=== PATIENT | male | born 1960 | race Two or more races ===

== ENCOUNTER → 2017-03-17 | Emergency (ER) | payer OTHER ==
[~2017-03-17] VITALS: Ht 185.4 cm; Wt 95.3 kg
[~2017-03-17] MED LIST: FOLIC ACID1 MG PO; GLIPIZIDE5 MG; HUMULIN 70100 UNIT/1; LANTUS SOLOSTAR3 ML; NEURONTIN300 MG PO; ZoCOR 20MG TABLET PO
== END | disposition left against medical advice (07) ==
LOC: ER 11:10
DX: Z53.20 Procedure and treatment not carried out because of patient's decision for unspecified reasons (principal)

== ENCOUNTER 2018-07-04 06:49 | Inpatient (IN) | payer OTHER ==
[~2018-07-04] VITALS: Ht 30.5 cm; Wt 6.0 kg
[2018-07-05] MEDS ORDERED: SIMVASTATIN20 MG PO (08:41)
[2018-07-30] MEDS ORDERED: FOLIC ACID1 MG PO (16:52)
[2018-07-30] MEDS ORDERED: Intestinex CAP PO (16:52)
[2018-07-30] MEDS ORDERED: CHLORHEXIDINE118 M1 TOP (16:52)
[2018-07-30] MEDS ORDERED: MUPIROCIN22 GM NASAL (16:52)
[2018-07-30] MEDS ORDERED: HUMULIN 70100 UNIT/2 SUBCUTANEO ×2 (16:52)
[2018-07-30] MEDS ORDERED: Lipitor 10MG TABLET PO (16:52)
[2018-07-30] MEDS ORDERED: NEURONTIN300 MG PO (16:52)
[2018-07-30] MEDS ORDERED: FAMOTIDINE20 MG PO (16:52)
[2018-07-30] MEDS ORDERED: ENALAPRIL MALEAT5 MG PO (16:52)
== END 2018-07-30 17:37 | DRG 623 ==
LOC: ER 06:49 → SEC-K 19:09 → SURH 19:09
PROVIDERS: Specialist; ADMIT Internal Medicine Geriatric Medicine
PROC: 8E0ZXY6 Isolation (ICD-10-PCS; 2018-07-04)
PROC: BQ3LZZZ Magnetic Resonance Imaging (MRI) of Right Foot (ICD-10-PCS; 2018-07-04)
PROC: 02HV33Z Insertion of Infusion Device into Superior Vena Cava, Percutaneous Approach (ICD-10-PCS; 2018-07-04)
PROC: 0JBQ0ZZ Excision of Right Foot Subcutaneous Tissue and Fascia, Open Approach (ICD-10-PCS; principal; 2018-07-09 14:00)
DX: E11.621 Type 2 diabetes mellitus with foot ulcer (principal); M86.671 Other chronic osteomyelitis, right ankle and foot; M86.672 Other chronic osteomyelitis, left ankle and foot; E08.42 Diabetes mellitus due to underlying condition with diabetic polyneuropathy; L97.511 Non-pressure chronic ulcer of other part of right foot limited to breakdown of skin; E78.49 Other hyperlipidemia; I87.2 Venous insufficiency (chronic) (peripheral); L03.032 Cellulitis of left toe; Z88.8 Allergy status to other drugs, medicaments and biological substances; Z89.421 Acquired absence of other right toe(s); B95.62 Methicillin resistant Staphylococcus aureus infection as the cause of diseases classified elsewhere; D64.89 Other specified anemias; R80.8 Other proteinuria; F43.21 Adjustment disorder with depressed mood; Z91.14 Patient's other noncompliance with medication regimen; Z88.0 Allergy status to penicillin
CPT/HCPCS: 73722

== ENCOUNTER 2020-03-30 09:26 | Outpatient (CLI) | payer OTHER ==
[~2020-03-30 09:26] MED LIST changes: +CHLORHEXIDINE118 M1 TOP; +ENALAPRIL MALEAT5 MG PO; +FAMOTIDINE20 MG PO; +HUMULIN 70100 UNIT/2 SUBCUTANEO; +Intestinex CAP PO; +Lipitor 10MG TABLET PO; +MUPIROCIN22 GM NASAL; +SIMVASTATIN20 MG PO
== END 2020-03-30 09:30 | disposition home or self-care (01) ==
LOC: LAB 09:26
PROVIDERS: ATTEND Specialist
DX: Z20.828 Contact with and (suspected) exposure to other viral communicable diseases (principal)

== ENCOUNTER 2021-03-08 09:07 | Emergency (ER) | payer OTHER ==
[~2021-03-08] VITALS: Ht 185.4 cm; Wt 97.5 kg
[~2021-03-08 09:07] MED LIST changes: +ACETAMINOPHEN650 M2 PO; +AZITHROMYCIN500 MG PO; +COLCHICINE0.6 MG PO; +IVERMECTIN3 MG PO; +MEDROLPACK PO; +MELATONIN10 M2 PO; +VITAMIN C WIT1000 MG PO; +VITAMIN D3-ALO1 EACH PO; +ZINC SULFATE220 M2 PO
== END 2021-03-08 13:29 | disposition home or self-care (01) ==
LOC: ER 09:07
DX: L03.116 Cellulitis of left lower limb (principal)

== ENCOUNTER 2022-08-03 17:23 | Inpatient (IN) | payer OTHER ==
[~2022-08-03] VITALS: Ht 170.2 cm; Wt 86.2 kg
[2022-08-08] MEDS ORDERED: NEURONTIN300 MG PO (12:55)
[2022-08-08] MEDS ORDERED: HUMULIN 70100 UNIT/2 SUBCUTANEO ×3 (12:55)
[2022-08-08] MEDS ORDERED: INTESTINEX680 M2 PO (12:55)
[2022-08-08] MEDS ORDERED: SIMVASTATIN20 MG PO (12:55)
[2022-08-08] MEDS ORDERED: ENALAPRIL MALEAT5 MG PO (12:55)
[2022-08-08] MEDS ORDERED: FAMOTIDINE20 MG PO (12:55)
== END 2022-08-08 15:18 | disposition home or self-care (01) | DRG 392 ==
LOC: ER 17:23 → MEDI 23:34
PROVIDERS: ADMIT Internal Medicine Geriatric Medicine; ATTEND Internal Medicine Geriatric Medicine
PROC: BW21ZZZ Computerized Tomography (CT Scan) of Abdomen and Pelvis (ICD-10-PCS; principal; 2022-08-03)
DX: K52.9 Noninfective gastroenteritis and colitis, unspecified (principal); R21 Rash and other nonspecific skin eruption; R60.0 Localized edema; E11.65 Type 2 diabetes mellitus with hyperglycemia; R80.9 Proteinuria, unspecified; E78.5 Hyperlipidemia, unspecified; I10 Essential (primary) hypertension; I73.9 Peripheral vascular disease, unspecified; Z20.822 Contact with and (suspected) exposure to COVID-19; Z79.4 Long term (current) use of insulin

== ENCOUNTER 2022-12-27 07:51 | Day surgery (SDC) | payer OTHER ==
[~2022-12-27 07:51] MED LIST changes: +INTESTINEX680 M2 PO
== END 2022-12-27 14:30 | disposition home or self-care (01) ==
LOC: AMB-ENDOS 07:51 → CIR.AMB 17:14
PROVIDERS: ATTEND Internal Medicine Gastroenterology
DX: R13.14 Dysphagia, pharyngoesophageal phase (principal); K29.00 Acute gastritis without bleeding; Z12.11 Encounter for screening for malignant neoplasm of colon; K29.70 Gastritis, unspecified, without bleeding; K62.1 Rectal polyp; K57.30 Diverticulosis of large intestine without perforation or abscess without bleeding; Z20.822 Contact with and (suspected) exposure to COVID-19; Z88.6 Allergy status to analgesic agent

== ENCOUNTER → 2024-03-27 10:07 | Outpatient (CLI) | payer OTHER | END | disposition home or self-care (01) | LOC: RAD 10:07 | PROVIDERS: ATTEND Ophthalmology | DX: Z01.811 Encounter for preprocedural respiratory examination (principal); I10 Essential (primary) hypertension ==

== ENCOUNTER 2025-02-02 15:54 | Emergency (ER) | payer OTHER ==
[~2025-02-02] VITALS: Ht 185.4 cm; Wt 102.1 kg
[2025-02-02] MEDS ORDERED: ORPHENADRINE CITRATE 30 MG/ML AMPUL IM ONE (19:45)
[2025-02-02] MEDS ORDERED: DEXAMETHASONE SODIUM PHOSPHATE 4 MG/ML VIAL IM ONE (19:45)
[2025-02-02] MEDS ORDERED: ACETAMINOPHEN 500 MG GEL..CAP PO ONE ×2 (19:45→20:50)
[2025-02-02] MEDS ORDERED: ORPHENADRINE CITRATE 30 MG/ML AMPUL ONE (20:50)
[2025-02-02] MEDS ORDERED: DEXAMETHASONE SODIUM PHOSPHATE 4 MG/ML VIAL ONE (20:50)
[2025-02-02] MEDS ORDERED: 8HR ARTHRITIS650 M1 PO (22:50)
[2025-02-02] MEDS ORDERED: NORFLEX100MG PO (22:50)
== END 2025-02-03 05:41 | disposition home or self-care (01) ==
LOC: ER 15:55
DX: M25.561 Pain in right knee (principal); E11.9 Type 2 diabetes mellitus without complications; Z79.4 Long term (current) use of insulin; Z88.1 Allergy status to other antibiotic agents
CPT/HCPCS: 73560; 96372; 99283; J1100; J2360